=== PATIENT | male | born 1975 | race Two or more races ===

== ENCOUNTER 2021-06-02 19:47 | Emergency (ER) | payer OTHER ==
[~2021-06-02] VITALS: Ht 172.7 cm; Wt 68.0 kg
[2021-06-02 20:06] VITALS: BP 129/88
--- NOTE | 2021-06-02 20:07 | NUR ---
BIBSELF C/O REDNESS AND BUMP ON LOWER BACK RIGHT AREA X 1 WEEK . PT AMBULATPRY WITH STEADY GAIT
--- NOTE | 2021-06-02 20:36 | NUR ---
AT PT'S BEDSIDE FOR WOUND CARE
[2021-06-02] MEDS ORDERED: SULF1TAB48 PO (20:49)
== END 2021-06-02 20:55 | disposition home or self-care (01) ==
LOC: ER 20:07
DX: L02.31 Cutaneous abscess of buttock (principal); L03.317 Cellulitis of buttock; Z60.2 Problems related to living alone